=== PATIENT | female | born 1950 | race African-American/Black ===

== ENCOUNTER → 2017-07-06 | Day surgery (SDC) | payer MEDICARE, MEDICAID ==
[2017-07-05 16:42] LABS: Basophils # (auto) 0.1 uL; Eosinophils # (auto) 0.1 uL; Eosinophils % (auto) 0.6 % (0.0-7.0); Lymphocytes # (auto) 1.1 uL; Mean Platelet Volume 8.5 fL (6.9-10.8); Monocytes # (auto) 0.5 uL; Neutrophils # (auto) 7.8 uL; Nucleated Red Blood Cells % 0.1 %
[2017-07-05 16:44] LABS: Basophils % (auto) 0.6 % (0.0-2.0); Hematocrit 39.4 % (36.0-46.0); Hemoglobin 12.9 g/dL (12.2-16.2); Lymphocytes % (auto) 11.1 % (10.0-50.0); Mean Corpuscular Hemoglobin 33.7 pg (28.0-32.0); Mean Corpuscular Hgb Conc. 32.7 g/dL (32.0-36.0); Monocytes % (auto) 5.6 % (0.0-12.0); Neutrophils % (auto) 82.1 % (37.0-80.0); Platelet Count (auto) 336 10^3/uL (140-450); Red Cell Distribution Width 15.3 % (11.8-14.3); White Blood Cell 9.5 10^3/uL (4.4-10.8)
[2017-07-05 16:58] LABS: Calcium 10.5 mg/dL (8.5-10.1); Potassium 3.5 mmol/L (3.5-5.1)
[2017-07-05 17:02] LABS: Albumin 3.3 g/dL (3.4-5.0); BUN/Creatinine Ratio 21.6
[2017-07-05 17:04] LABS: Bilirubin, Total 0.6 mg/dL (0.2-1.0); Total Protein 7.2 g/dL (6.4-8.2)
[2017-07-05 17:09] LABS: Urine Bilirubin Negative (Negative); Urine Blood 3+ /uL (Negative); Urine Color Red (Yellow); Urine Glucose Normal (Normal); Urine Ketone Negative (Negative); Urine Mucus FEW (None Seen); Urine Nitrite Negative (Negative); Urine RBC 2321 /hpf (0 - 4); Urine Urobilinogen Normal (Negative)
[2017-07-05 17:33] LABS: INR 1.11 (0.9-1.15); Partial Thromboplastin Time 23.4 sec (22.64-33.71); Prothrombin Time 12.1 sec (9.37-12.3)
[~2017-07-06] VITALS: Ht 175.3 cm; Wt 74.8 kg
[~2017-07-06] MED LIST: ALBUAER3 IN; AMLO5TAB2 PO; APIX5TAB OR; BRIM0.2S2 OP; DIG0125T OR; DORZ2SOL22 EACHEYE; ENA2.5T OR; ETAN50IN5 SC; FLU220IH INH; FOLI1TAB6 PO; FURO40TA4 PO; FUROSEMIDE 20 MG/2 ML VIAL ONE; HYDROCORTISONE SOD SUCC 100 MG/2ML INJ VIAL IV ONE; IOHEXOL 300 MG/ML 100ML BOTTLE IJ ONE; LATA0.0015 OP; MAGN400T21 PO; METH25IN14 IJ; METO25TA5 PO; MIDAZOLAM HCL 1MG/1ML-2 ML VIAL ONE; MORPHINE SULF INJ 2 MG/ML SYRINGE 1ML IV PRN; POTA8TAB2 PO; SUCCINYLCHOLINE CHLORIDE 20 MG/ML 10ML VIAL IV ONE; TIMO0.5S32 OP; ceFAZolin 1GM/50ML 50 ML IV ONE; ePHEDrine SULFATE 50 MG/ML AMP IV PRN; fentaNYL CITRATE 100 MCG/2 ML VL ONE; hydrALAZINE HCL 20 MG/ML VL ONE
[2017-07-06] MEDS: hydrALAZINE HCL 20 MG/ML VL IV PRN ×2 (12:02→12:37)
[2017-07-06 13:40] VITALS: BP 165/71
== END | disposition home or self-care (01) ==
LOC: SUR 05:56
PROVIDERS: ATTEND Urology
DX: N13.2 Hydronephrosis with renal and ureteral calculous obstruction (principal); T83.192A Other mechanical complication of indwelling ureteral stent, initial encounter; D69.6 Thrombocytopenia, unspecified; I48.91 Unspecified atrial fibrillation; J45.909 Unspecified asthma, uncomplicated; J44.9 Chronic obstructive pulmonary disease, unspecified; I34.1 Nonrheumatic mitral (valve) prolapse; I10 Essential (primary) hypertension; E03.9 Hypothyroidism, unspecified; Z88.6 Allergy status to analgesic agent
CPT/HCPCS: 36415; 50590; 52332; 80053; 81001; 85025; 85610; 85730; C1769; C2617; J0330; J0360; J0690; J1720; J1940; J2250; J2270; J3010; Q9967